=== PATIENT | female | born 1980 | race Caucasian/White ===

== ENCOUNTER 2016-09-26 16:28 | Emergency (ER) | payer MEDICAID ==
[2016-09-26 17:20] VITALS: BP 127/80
[2016-09-26] MEDS ORDERED: Azithromycin TAB* 250 MG PO ONE (18:28)
--- NOTE | 2016-09-26 18:28 | UC ---
Throat Pain/Nasal Roberto Carlos HPI - HPI Summary HPI Summary: worsening sinus pain, congestion, post nasal drip - History of Current Complaint Chief Complaint: UCRespiratory Stated Complaint: SINUS Time Seen by Provider: 09/26/16 18:16 Hx Obtained From: Patient Hx Last Menstrual Period: 09/10/16 ?: No Onset/Duration: Gradual Onset, Lasting Weeks - 3, Still Present, Worse Since - daily Severity: Moderate Pain Intensity: 8 Pain Scale Used: 0-10 Numeric Cough: Nonproductive Associated Signs & Symptoms: Positive: Sinus Discomfort, Nasal Discharge - Allergies/Home Medications Allergies/Adverse Reactions: Allergies Allergy/AdvReac Type Severity Reaction Status Date / Time Codeine Allergy Hives Verified 09/26/16 17:21 Penicillins Allergy Hives Verified 09/26/16 17:21 Shellfish-derived Products Allergy Hives Verified 09/26/16 17:21 flatfish Allergy Unknown Uncoded 11/13/12 13:31 Reaction Details PMH/Surg Hx/FS Hx/Imm Hx Previously Healthy: Yes - Surgical History Surgical History: Yes Surgery Procedure, Year, and Place: tubal august 2003. hernia repair. left hip - Family History Known Family History: Positive: None Family History: no cardiovascular issues in family lineage - Social History Occupation: Employed Full-time Lives: With Family Alcohol Use: Occasionally Substance Use Type: None Smoking Status (MU): Never Smoked Tobacco Review of Systems Constitutional: Negative Skin: Negative Eyes: Negative ENT: Ear Ache, Nasal Discharge Respiratory: Cough Cardiovascular: Negative Gastrointestinal: Negative Genitourinary: Negative Motor: Negative Neurovascular: Negative Musculoskeletal: Negative Neurological: Headache - Sinus Psychological: Negative All Other Systems Reviewed And Are Negative: Yes Physical Exam Triage Information Reviewed: Yes Appearance: Well-Nourished, Ill-Appearing - mild, Pain Distress - mild Vital Signs: Initial Vital Signs Temp 98 F 09/26/16 17:15 Pulse 78 09/26/16 17:15 Resp 16 09/26/16 17:15 BP 127/80 09/26/16 17:15 Pulse Ox 100 09/26/16 17:15 Vital Signs Reviewed: Yes Eye Exam: Normal Eyes: Positive: Conjunctiva Clear ENT Exam: Normal ENT: Positive: Normal ENT inspection, Hearing grossly normal, Pharynx normal, Nasal congestion, Nasal drainage. Negative: TMs normal, Tonsillar swelling, Tonsillar exudate, Trismus, Muffled/hoarse voice Dental Exam: Normal Neck exam: Normal Neck: Positive: Supple, Nontender Respiratory Exam: Normal Respiratory: Positive: Chest non-tender, Lungs clear, Normal breath sounds, No respiratory distress, No accessory muscle use Cardiovascular Exam: Normal Cardiovascular: Positive: RRR, No Murmur, Pulses Normal, Brisk Capillary Refill Musculoskeletal Exam: Normal Musculoskeletal: Positive: Strength Intact, ROM Intact, No Edema Neurological Exam: Normal Neurological: Positive: Alert, Muscle Tone Normal Psychological Exam: Normal Skin Exam: Normal Throat Pain/Nasal Course/Dx - Course Assessment/Plan: flonase (pt refused), Mucinex D, Zithromax, increase fluids, follow with pcp - Differential Dx/Diagnosis Differential Diagnosis/HQI/PQRI: Influenza, Laryngitis, Peritonsillar Abscess, Pharyngitis, Sinusitis, URI Provider Diagnoses: Sinusitis Discharge - Discharge Plan Condition: Stable Disposition: HOME Prescriptions: Azithromycin TAB* [Zithromax TAB (Z-BRIGITTE) 250 mg #6 tabs] 250 mg PO DAILY #4 tab Patient Education Materials: Decongestant/Expectorant (By mouth), Sinusitis (ED ), Nasal Rinse (ED) Referrals: Indu Quintana MD [Primary Care Provider] - If Needed
== END 2016-09-26 18:37 | disposition home or self-care (01) ==
LOC: UCCORT 16:28
DX: J32.9 Chronic sinusitis, unspecified (principal)
CPT/HCPCS: 99202; A9270-GY; G0463

== ENCOUNTER 2018-06-06 08:44 | Emergency (ER) | payer OTHER ==
[2018-06-06 09:13] VITALS: BP 124/84
--- NOTE | 2018-06-06 10:06 | UC ---
Throat Pain/Nasal Roberto Carlos HPI - HPI Summary HPI Summary: 37-year-old woman comes in with a chief complaint of 3 weeks of upper respiratory tract infection symptoms. She has yellow-green rhinorrhea sinus pressure and postnasal drip. The cough chest congestion with intermittent wheezing. She's been having chills. [id number] medicines help some with the symptoms return. He is not a smoker. - History of Current Complaint Chief Complaint: UCRespiratory Stated Complaint: SINUS CONGESTION Time Seen by Provider: 06/06/18 09:57 Hx Last Menstrual Period: 05/12/18 Pain Intensity: 0 - Allergies/Home Medications Allergies/Adverse Reactions: Allergies Allergy/AdvReac Type Severity Reaction Status Date / Time codeine Allergy Hives Verified 06/06/18 09:08 morphine Allergy Rash and Verified 06/06/18 09:08 Vomiting Penicillins Allergy Hives Verified 06/06/18 09:08 shellfish derived Allergy Hives Verified 06/06/18 09:08 flat fish Allergy Unknown Uncoded 06/06/18 09:08 Reaction Details PMH/Surg Hx/FS Hx/Imm Hx Previously Healthy: Yes - Surgical History Surgical History: Yes Surgery Procedure, Year, and Place: Right Tarsal Tunnel, 2018, [facility]; Right Kidney Stent Placement and Removal, 2017, [place]; Left Hip Ligaments, 2016, [place]; Umbilical Herniorrhaphy and Tubal Ligation, 2003, [place] - Family History Known Family History: Positive: None Family History: no cardiovascular issues in family lineage - Social History Alcohol Use: Occasionally Substance Use Type: None Smoking Status (MU): Never Smoked Tobacco Review of Systems All Other Systems Reviewed And Are Negative: Yes Constitutional: Positive: Chills Skin: Positive: Negative Eyes: Positive: Negative ENT: Positive: Sore Throat, Nasal Discharge, Sinus Congestion, Sinus Pain/ Tenderness Respiratory: Positive: Cough, Other - WHEEZING Cardiovascular: Positive: Negative Gastrointestinal: Positive: Negative Motor: Positive: Negative Neurovascular: Positive: Negative Musculoskeletal: Positive: Negative Neurological: Positive: Negative Psychological: Positive: Negative Is Patient Immunocompromised?: No Physical Exam Triage Information Reviewed: Yes Appearance: No Pain Distress, Well-Nourished, Ill-Appearing - MILD Vital Signs: Initial Vital Signs Temp 98.1 F 06/06/18 09:04 Pulse 86 06/06/18 09:04 Resp 16 02/06/19 09:04 BP 124/84 06/06/18 09:04 Pulse Ox 100 06/06/18 09:04 Vital Signs Reviewed: Yes Eye Exam: Normal Eyes: Positive: Conjunctiva Clear ENT: Positive: Pharyngeal erythema, Nasal congestion, Nasal drainage, TMs normal Neck exam: Normal Neck: Positive: Supple Respiratory: Positive: Normal breath sounds, No respiratory distress, No accessory muscle use Cardiovascular: Positive: RRR Musculoskeletal Exam: Normal Musculoskeletal: Positive: Strength Intact, ROM Intact Neurological Exam: Normal Neurological: Positive: Alert, Muscle Tone Normal Psychological Exam: Normal Psychological: Positive: Age Appropriate Behavior Skin Exam: Normal Throat Pain/Nasal Course/Dx - Differential Dx/Diagnosis Provider Diagnosis: Sinusitis, Bronchitis with bronchospasm Discharge - Sign-Out/Discharge Documenting (check all that apply): Patient Departure All imaging exams completed and their final reports reviewed: No Studies - Discharge Plan Condition: Stable Disposition: HOME Prescriptions: Albuterol HFA INHALER* [Ventolin HFA Inhaler*] 2 puff INH Q4H PRN #1 mdi PRN Reason: Wheezing DOXYcycline CAP(*) [DOXYcycline 100MG CAP(*)] 100 mg PO BID #20 cap Patient Education Materials: Sinusitis (ED), Acute Bronchitis (ED), Bronchospasm (ED) Forms: *Work Release Referrals: Indu Quintana MD [Primary Care Provider] - - Billing Disposition and Condition Condition: STABLE Disposition: Home
== END 2018-06-06 10:12 | disposition home or self-care (01) ==
LOC: UCCORT 08:44
DX: J32.9 Chronic sinusitis, unspecified (principal); J40 Bronchitis, not specified as acute or chronic; J98.01 Acute bronchospasm
CPT/HCPCS: 99212; G0463

== ENCOUNTER 2019-01-21 17:11 | Emergency (ER) | payer BC, OTHER ==
[2019-01-21 17:56] VITALS: BP 131/90
--- NOTE | 2019-01-21 18:19 | UC ---
General HPI - HPI Summary HPI Summary: pt jammed her R wrist/hand area in the middle of last week. she was driving a mower and hit a pot hole causing the injury. she has ongoing pain. - History of Current Complaint Chief Complaint: UCUpperExtremity Stated Complaint: RIGHT HAND INJURY Time Seen by Provider: 01/21/19 18:13 Hx Obtained From: Patient Hx Last Menstrual Period: 01/05/19--tubal ligation Onset/Duration: Sudden Onset Timing: Constant Pain Intensity: 7 Aggravating: movement Associated Signs & Symptoms: Negative: Edema, Fever, Weakness - Allergy/Home Medications Allergies/Adverse Reactions: Allergies Allergy/AdvReac Type Severity Reaction Status Date / Time codeine Allergy Hives Verified 01/21/19 17:49 morphine Allergy Rash and Verified 01/21/19 17:49 Vomiting Penicillins Allergy Hives Verified 01/21/19 17:49 shellfish derived Allergy Hives Verified 01/21/19 17:49 flat fish Allergy Unknown Uncoded 01/21/19 17:49 Reaction Details Home Medications: Home Medications Acetaminophen [Tylenol Extra Strength] 1,500 mg PO BID PRN 01/21/19 [History Confirmed 01/21/19] PMH/Surg Hx/FS Hx/Imm Hx Previously Healthy: Yes - Surgical History Surgical History: Yes Surgery Procedure, Year, and Place: Right Tarsal Tunnel, 2018, [place]; Right Kidney Stent Placement and Removal, 2017, [place]; Left Hip Ligaments, 2016, [place]; Umbilical Herniorrhaphy and Tubal Ligation, 2003, [place]. Left ankle reconstruction--07/2018 - Family History Known Family History: Positive: None Family History: no cardiovascular issues in family lineage - Social History Alcohol Use: Occasionally Substance Use Type: None Smoking Status (MU): Never Smoked Tobacco Review of Systems All Other Systems Reviewed And Are Negative: No Constitutional: Negative: Fever Skin: Negative: Rash Musculoskeletal: Negative: Decreased ROM, Edema Neurological: Negative: Weakness, Paresthesia, Numbness Physical Exam Triage Information Reviewed: Yes Appearance: Well-Appearing Vital Signs: Initial Vital Signs Temp 98 F 01/21/19 17:50 Pulse 76 01/21/19 17:50 Resp 20 01/21/19 17:50 BP 131/90 01/21/19 17:50 Pulse Ox 100 01/21/19 17:50 Vital Signs Reviewed: Yes Cardiovascular: Positive: RRR Musculoskeletal: Positive: Other: - RUE= shoulder, elbow and forearm without deformity or tenderness. wrist without deformity but is tender over dorsal- radial area. hand without deformity but tender over dorsal thumb. wrist and hand have full s/v/m function. Neurological: Positive: Alert Psychological: Positive: Age Appropriate Behavior Skin Exam: Normal Diagnostics - Radiology No standard instances Radiology Interpretation Completed By: ED Physician - wrist=nad but hand xray in wrist area ? chip fx Course/Dx - Differential Dx - Multi-Symptom Differential Diagnoses: Other - wrist xray=nad but hand xray showed ? chip fx thus will splint and refer to orthopedics - Diagnoses Provider Diagnosis: Sprain of right wrist, Sprain of hand, thumb, right Discharge ED - Sign-Out/Discharge Documenting (check all that apply): Patient Departure All imaging exams completed and their final reports reviewed: No - Discharge Plan Condition: Stable Disposition: HOME Patient Education Materials: Wrist Sprain (ED), Finger Sprain (ED), Wrist Fracture in Adults (ED) Referrals: Neo Gatica MD [Medical Doctor] - As Soon As Possible Additional Instructions: WEAR THE SPLINT AT ALL TIMES UNTIL CLEARED BY ORTHOPEDICS. - Billing Disposition and Condition Condition: STABLE Disposition: Home
--- NOTE | 2019-01-22 10:32 | UC ---
- Progress Note Progress Note: xray report right hand / wrist : IMPRESSION: Question of a avulsion fracture off the dorsal aspect of the proximal row of the dorsal wrist. Course/Dx - Diagnoses Provider Diagnoses: Sprain of right wrist, Sprain of hand, thumb, right Discharge ED - Sign-Out/Discharge Documenting (check all that apply): Patient Departure All imaging exams completed and their final reports reviewed: Yes - Discharge Plan Condition: Stable Disposition: HOME Patient Education Materials: Wrist Fracture in Adults (ED), Finger Sprain (ED) , Wrist Sprain (ED) Referrals: Neo Gatica MD [Medical Doctor] - As Soon As Possible Additional Instructions: WEAR THE SPLINT AT ALL TIMES UNTIL CLEARED BY ORTHOPEDICS. - Billing Disposition and Condition Condition: STABLE Disposition: Home
== END 2019-01-21 19:17 | disposition home or self-care (01) ==
LOC: UCCORT 17:11
DX: S63.501A Unspecified sprain of right wrist, initial encounter (principal); S63.601A Unspecified sprain of right thumb, initial encounter; W31.89XA Contact with other specified machinery, initial encounter; Y93.89 Activity, other specified; Y92.096 Garden or yard of other non-institutional residence as the place of occurrence of the external cause; Z88.5 Allergy status to narcotic agent; Z88.0 Allergy status to penicillin; Z91.013 Allergy to seafood
CPT/HCPCS: 99212; G0463